=== PATIENT | female | born 1950 | race Caucasian/White ===

== ENCOUNTER 2025-04-12 10:31 | Outpatient (CLI) | payer MEDICARE | END 2025-04-12 10:32 | disposition home or self-care (01) | LOC: CSHULT 10:31 | PROVIDERS: ATTEND Family Medicine | DX: M79.89 Other specified soft tissue disorders (principal); M79.604 Pain in right leg ==

== ENCOUNTER 2025-04-20 07:32 | Outpatient (CLI) | payer MEDICARE ==
[2025-04-20 09:04] LABS: Estimated GFR - POC 77.0
[2025-04-20] MEDS ORDERED: Iopamidol 300 61% 100 ML VIAL FS ONE (15:29)
== END 2025-04-20 07:33 | disposition home or self-care (01) ==
LOC: CSHCT 07:32
PROVIDERS: ATTEND Family Medicine
DX: M79.89 Other specified soft tissue disorders (principal); K86.89 Other specified diseases of pancreas
CPT/HCPCS: 36415; 74177; 82565; Q9967